=== PATIENT | male | born 1990 | race Two or more races ===

== ENCOUNTER 2019-12-02 07:08 | Emergency (ER) | payer SELFPAY ==
[~2019-12-02] VITALS: Ht 185.4 cm; Wt 108.9 kg
--- NOTE | 2019-12-02 07:10 | NUR ---
BIBS FOR C/O NON-RADIATING CP 09/22 X 30MIN -SOB, -N/V. PATIENT A/OX4, BREATHING EVEN AND UNLABORED, NO SOB NOTED, KEPT COMFORTABLE. NEEDS ATTENDED.
--- NOTE | 2019-12-02 08:05 | NUR ---
PATIENT A/OX4, AMBULATORY WITH STEADY GAIT. DENIES PAIN AT THIS TIME. Patient discharged to home in stable condition. Written and verbal after care instructions given. Patient verbalizes understanding of instruction.
[2019-12-02 08:06] VITALS: BP 117/75
== END 2019-12-02 08:06 | disposition home or self-care (01) ==
LOC: ER 07:08
DX: F41.9 Anxiety disorder, unspecified (principal)
CPT/HCPCS: 71045-TC

== ENCOUNTER 2020-01-07 20:29 | Emergency (ER) | payer SELFPAY ==
[~2020-01-07] VITALS: Ht 185.4 cm; Wt 108.9 kg
[2020-01-07 20:44] VITALS: BP 142/92
[2020-01-07] MEDS ORDERED: KETOROLAC TROMETHAMINE INJ 30 MG/ML VIAL ONE (21:18)
[2020-01-07] MEDS ORDERED: KETOROLAC TROMETHAMINE INJ 60 MG/2 ML VIAL IM ONE (21:30)
== END 2020-01-07 21:44 | disposition home or self-care (01) ==
LOC: ER 20:29
DX: S86.812A Strain of other muscle(s) and tendon(s) at lower leg level, left leg, initial encounter (principal); X50.1XXA Overexertion from prolonged static or awkward postures, initial encounter; Y93.02 Activity, running; Y92.322 Soccer field as the place of occurrence of the external cause; Y99.8 Other external cause status
CPT/HCPCS: 96372; 99283; J1885

== ENCOUNTER 2024-06-24 23:48 | Emergency (ER) | payer OTHER ==
[~2024-06-24] VITALS: Ht 182.9 cm; Wt 113.4 kg
[2024-06-25] MEDS ORDERED: ALBU8.5H8 INH (02:47)
[2024-06-25] MEDS ORDERED: BENZ-13 PO (02:47)
[2024-06-25] MEDS ORDERED: AZIT250T PO (02:47)
[2024-06-25 02:59] VITALS: BP 124/83; TEMP 97.9; O2SAT 98
== END 2024-06-25 02:59 | disposition home or self-care (01) ==
LOC: ER 06-25 00:05
DX: J40 Bronchitis, not specified as acute or chronic (principal); R06.02 Shortness of breath; R09.89 Other specified symptoms and signs involving the circulatory and respiratory systems; Z20.822 Contact with and (suspected) exposure to COVID-19
CPT/HCPCS: 71045-TC